=== PATIENT | male | born 1965 | race Native Hawaiian/Other Pacific Islander ===

== ENCOUNTER 2016-07-06 10:38 | Outpatient (CLI) | payer OTHER ==
[2016-07-06 13:20] LABS: POTASSIUM 3.4 mmol/L (3.6-5.2); SODIUM 136 mmol/L (136-145)
== END 2016-07-06 20:04 | disposition home or self-care (01) ==
LOC: RAD 10:38
PROVIDERS: Nurse Practitioner
DX: Z79.899 Other long term (current) drug therapy (principal); E29.1 Testicular hypofunction; Z51.81 Encounter for therapeutic drug level monitoring; M25.511 Pain in right shoulder; R79.89 Other specified abnormal findings of blood chemistry
CPT/HCPCS: 36415; 80053; 84153; 84402

== ENCOUNTER 2016-10-23 10:45 | Outpatient (CLI) | payer OTHER | END 2016-10-23 12:00 | disposition home or self-care (01) | LOC: MRI 10:45 | DX: M25.511 Pain in right shoulder (principal) ==

== ENCOUNTER 2019-05-02 08:43 | Outpatient (CLI) | payer OTHER | END 2019-05-02 19:34 | disposition home or self-care (01) | LOC: CT 08:43 | DX: G57.31 Lesion of lateral popliteal nerve, right lower limb (principal) | CPT/HCPCS: 36415; 82565; 84520 ==

== ENCOUNTER 2019-05-17 13:15 | Outpatient (CLI) | payer OTHER | END 2019-05-17 21:46 | disposition home or self-care (01) | LOC: MRI 13:15 | DX: M54.16 Radiculopathy, lumbar region (principal) ==

== ENCOUNTER 2019-06-23 08:44 | Outpatient (CLI) | payer OTHER ==
[2019-06-23 09:51] LABS: POTASSIUM 4.6 mmol/L (3.6-5.2)
[2019-06-23 10:21] LABS: PLATELET COUNT 247 K/uL (142-355)
== END 2019-06-23 19:52 | disposition home or self-care (01) ==
LOC: LAB 08:44
PROVIDERS: Nurse Practitioner Family
DX: Z00.00 Encounter for general adult medical examination without abnormal findings (principal); G25.81 Restless legs syndrome; K21.9 Gastro-esophageal reflux disease without esophagitis; M25.511 Pain in right shoulder; J44.9 Chronic obstructive pulmonary disease, unspecified; E53.8 Deficiency of other specified B group vitamins; F41.9 Anxiety disorder, unspecified; Z79.899 Other long term (current) drug therapy; E55.9 Vitamin D deficiency, unspecified
CPT/HCPCS: 80053; 80061; 82306; 82607; 83036; 84439; 84443; 85027

== ENCOUNTER 2019-12-18 10:05 | Outpatient (CLI) | payer OTHER ==
[2019-12-18 10:58] LABS: PLATELET COUNT 233 K/uL (142-355)
[2019-12-18 11:34] LABS: POTASSIUM 4.6 mmol/L (3.6-5.2)
== END 2019-12-18 19:19 | disposition home or self-care (01) ==
LOC: LAB 10:05
PROVIDERS: Nurse Practitioner Family
DX: Z00.00 Encounter for general adult medical examination without abnormal findings (principal); G25.81 Restless legs syndrome; K21.9 Gastro-esophageal reflux disease without esophagitis; Z79.899 Other long term (current) drug therapy; M19.90 Unspecified osteoarthritis, unspecified site; E29.1 Testicular hypofunction; F41.8 Other specified anxiety disorders; E53.8 Deficiency of other specified B group vitamins; E55.9 Vitamin D deficiency, unspecified
CPT/HCPCS: 80053; 80061; 82306; 82607; 83036; 84153; 84439; 84443; 84481; 85027; 86376

== ENCOUNTER 2020-01-09 13:04 | Outpatient (CLI) | payer OTHER | END 2020-01-09 23:26 | disposition home or self-care (01) | LOC: LAB 13:04 | DX: R53.83 Other fatigue (principal); R53.81 Other malaise | CPT/HCPCS: 84402; 84403 ==

== ENCOUNTER 2022-10-21 14:07 | Outpatient (CLI) | payer OTHER ==
[2022-10-21 14:24] LABS: PLATELET COUNT 258 K/uL (142-355)
[2022-10-21 15:10] LABS: POTASSIUM 4.4 mmol/L (3.6-5.2)
== END 2022-10-21 20:43 | disposition home or self-care (01) ==
LOC: LAB 14:07
PROVIDERS: ATTEND Nurse Practitioner Family
DX: G25.81 Restless legs syndrome (principal); K21.9 Gastro-esophageal reflux disease without esophagitis; F41.8 Other specified anxiety disorders; M54.89 Other dorsalgia; E29.1 Testicular hypofunction; K27.9 Peptic ulcer, site unspecified, unspecified as acute or chronic, without hemorrhage or perforation; M19.90 Unspecified osteoarthritis, unspecified site; E55.9 Vitamin D deficiency, unspecified; I10 Essential (primary) hypertension; R97.8 Other abnormal tumor markers; E53.8 Deficiency of other specified B group vitamins; Z79.899 Other long term (current) drug therapy; R97.20 Elevated prostate specific antigen [PSA]
CPT/HCPCS: 80053; 80061; 82306; 83036; 84153; 84439; 84443; 85027

== ENCOUNTER 2022-11-03 07:53 | Outpatient (CLI) | payer OTHER | END 2022-11-03 20:34 | LOC: US 07:53 | PROVIDERS: ATTEND Nurse Practitioner Family | DX: N50.811 Right testicular pain (principal); R97.20 Elevated prostate specific antigen [PSA] ==